=== PATIENT | male | born 1945 | race Caucasian/White ===

== ENCOUNTER → 2017-06-20 | Outpatient (REF) | payer MEDICARE ==
[2017-06-20 13:35] LABS: APPEARANCE, URINE CLEAR (CLEAR); BACTERIA, URINE AUTO NEGATIVE (NEGATIVE); BILIRUBIN, URINE AUTO NEGATIVE (NEGATIVE); BLOOD, URINE BLOOD NEGATIVE (NEGATIVE); COLOR, URINE YELLOW (YELLOW); GLUCOSE, URINE (UA) AUTO NEGATIVE (NEGATIVE); KETONE, URINE AUTO NEGATIVE (NEGATIVE); LEUKOCYTE ESTERASE, URINE AUTO NEGATIVE (NEGATIVE); NITRITE, URINE AUTO NEGATIVE (NEGATIVE); PROTEIN, URINE AUTO NEGATIVE (NEGATIVE); RBC, URINE AUTO 0 /HPF (0-3); SPECIFIC GRAVITY URINE AUTO 1.009 (1.002-1.035); SQUAMOUS EPITHELIAL CELL UR AU 0 /HPF (0-6); UROBILINOGEN, URINE AUTO 0.2 mg/dL (0.0-2.0); WBC, URINE AUTO 0 /HPF (0-3)
== END ==
LOC: M SMT 13:06
DX: C67.9 Malignant neoplasm of bladder, unspecified (principal); Z79.899 Other long term (current) drug therapy
CPT/HCPCS: 81001

== ENCOUNTER → 2018-01-17 | Outpatient (REF) | payer MEDICARE | LOC: M SMT 17:07 | DX: C67.9 Malignant neoplasm of bladder, unspecified (principal) | CPT/HCPCS: 88108 ==

== ENCOUNTER → 2018-09-04 | Outpatient (REF) | payer MEDICARE | LOC: M SMT 13:25 | PROVIDERS: ATTEND Urology | DX: C67.9 Malignant neoplasm of bladder, unspecified (principal) ==

== ENCOUNTER → 2019-03-09 | Outpatient (REF) | payer MEDICARE | LOC: M SMT 10:14 | PROVIDERS: ATTEND Urology | DX: C67.9 Malignant neoplasm of bladder, unspecified (principal) ==

== ENCOUNTER → 2019-09-10 | Outpatient (REF) | payer MEDICARE | LOC: M SMT 17:29 | PROVIDERS: ATTEND Urology | DX: C67.9 Malignant neoplasm of bladder, unspecified (principal) ==

== ENCOUNTER → 2020-09-19 | Outpatient (REF) | payer MEDICARE | LOC: M SMT 16:52 | PROVIDERS: ATTEND Urology | DX: C67.9 Malignant neoplasm of bladder, unspecified (principal) ==

== ENCOUNTER → 2021-09-28 | Outpatient (REF) | payer MEDICARE | LOC: M SMT 13:02 | PROVIDERS: ATTEND Urology | DX: C67.9 Malignant neoplasm of bladder, unspecified (principal) ==

== ENCOUNTER → 2022-07-15 | Outpatient (CLI) | payer MEDICARE | LOC: M CARPUL 12:41 | PROVIDERS: ATTEND Internal Medicine Cardiovascular Disease | DX: R42 Dizziness and giddiness (principal); I10 Essential (primary) hypertension; I08.3 Combined rheumatic disorders of mitral, aortic and tricuspid valves ==

== ENCOUNTER → 2022-09-28 | Outpatient (REF) | payer MEDICARE | LOC: M SMT 17:37 | PROVIDERS: ATTEND Urology | DX: C67.9 Malignant neoplasm of bladder, unspecified (principal) ==

== ENCOUNTER → 2023-10-24 | Outpatient (REF) | payer MEDICARE | LOC: M SMT 17:02 | PROVIDERS: ATTEND Urology | DX: C67.9 Malignant neoplasm of bladder, unspecified (principal) ==

== ENCOUNTER 2023-11-30 06:37 | Day surgery (SDC) | payer MEDICARE ==
[~2023-11-30] VITALS: Ht 182.9 cm; Wt 74.4 kg
[~2023-11-30 06:37] MED LIST: DONE5TAB82 PO; LISI2.5T9 PO; PHENYLEPHRINE 10% OPHTH SOL 5ML OD PRN
[2023-11-30] MEDS: TROPICAMIDE 1% OPHTH SOLN 15ML OD SCH (07:10)
[2023-11-30] MEDS: ATROPINE SULFATE 1% OPHTH SOLN 2ML BTL OD SCH (07:10)
[2023-11-30] MEDS: PHENYLEPHRINE 2.5% OPHTH SOL 2ML OD SCH (07:10)
[2023-11-30] MEDS: OFLOXACIN 0.3 % (OCUFLOX) OPTH SOL 5ML OD ONE (07:10)
[2023-11-30] MEDS: LIDOCAINE 3.5 % 1ML OPHTH TOPICAL GEL OU ONE (07:10)
[2023-11-30] MEDS ORDERED: MIDAZOLAM INJ 2MG/2ML VIAL As Ordered ONE (07:26)
[2023-11-30] MEDS ORDERED: fentaNYL 100 MCG/2 ML INJECTION As Ordered ONE (07:26)
[2023-11-30] MEDS: LIDOCAINE 1% SDV 5ML VIAL As Ordered ONE (08:25)
[2023-11-30] MEDS: BSS IRRIG/VANCO(10MG)/TOBRA(5MG)/EPINEPH(1:1000-0.5CC)500ML BAG-ORONLY As Ordered ONE (08:25)
[2023-11-30] MEDS: CEFUROXIME 1MG/0.1ML INTRACAMERAL INJ As Ordered ONE (08:26)
[2023-11-30 08:35] VITALS: BP 160/67; TEMP 96.8; O2SAT 99
== END 2023-11-30 08:54 | disposition home or self-care (01) ==
LOC: M SDC 06:37
PROVIDERS: ATTEND Ophthalmology
DX: H25.11 Age-related nuclear cataract, right eye (principal); I10 Essential (primary) hypertension; Z88.5 Allergy status to narcotic agent; Z79.899 Other long term (current) drug therapy; Z87.891 Personal history of nicotine dependence; Z85.51 Personal history of malignant neoplasm of bladder
CPT/HCPCS: 66984; J0697; J2250; J3010; V2632

== ENCOUNTER → 2024-09-06 | Outpatient (CLI) | payer MEDICARE ==
[~2024-09-06] MED LIST changes: +MEMA10TA; -PHENYLEPHRINE 10% OPHTH SOL 5ML OD PRN
== END ==
LOC: M RAD 08:53
PROVIDERS: ATTEND Internal Medicine Medical Oncology
DX: D69.6 Thrombocytopenia, unspecified (principal)